=== PATIENT | male | born 1950 | race Caucasian/White ===

== ENCOUNTER 2016-06-19 05:53 | Emergency (ER) | payer OTHER ==
--- NOTE | 2016-06-19 07:19 | DIAGNOSTIC IMAGING REPORT ---
PROCEDURE: XR CHEST 2 VIEW INDICATION: COUGH TECHNIQUE: PA and lateral view. COMPARISON: None. FINDINGS: Hyperinflation. Lung are clear. Cardiovascular structures are normal. Bony thorax is unremarkable. IMPRESSION: 1. No acute changes 2. Hyperinflation
--- NOTE | 2016-06-19 07:35 | ED NURSING NOTES ---
Clinical Report - Nurses [facility] [place] [address] 06/19/2016 5:55 Patient: JUDIE CISNEROS TRIAGE Triage time 05:59 Jun 19 2016. Acuity: LEVEL 3. Chief Complaint: FEVER, POOR APPETITE and COUGH. 06:04 06/19/16. SEPSIS SCREEN: Sepsis Screen: negative. Negative (no infection suspected/documented). BERNADETTE COMA SCORE: Bernadette Coma Scale: 15- eyes open spontaneously (4); best verbal response- oriented x 4 (5); best motor response- obeys commands (6). --06:04 Jeanie Leal 05:59 06/19/16. BP: 154/89. HR: 61. RR: 20. O2 saturation: 95% on room air. Temp: 97.5 F (oral). Pain level now: 0/10. --06:04 Jeanie Leal. Weight: 86.1 kg stated. Height/Length: 73 inches Per Patient. BMI: 25. --06:02 Jeanie Leal. Medications None. --06:01 Jeanie Leal. Medication/allergy information source: the patient. --06:04 Jeanie Leal. Allergies No Known Drug Allergy. --06:01 Jeanie Leal. History Arrived by private vehicle. Historian: patient. Accompanied by family. Primary physician (Landry). Onset. (1 weeks). ( Patient states he has had a cough for one week that is productive with clear sputum. He states he has also had fever. He reports poor appetite and states he has not ate or drank for one week. He reports feeling fatigued.). PAST MEDICAL HX: Immunizations: up-to-date. SOCIAL HX: Smoker- current status unknown (Quit smoking ten days ago). Occasional alcohol use. No drug use. No infectious disease exposure. ABUSE ASSESSMENT: No report of abuse. FALL RISK ASSESSMENT: Fall risk assessment completed. No fall risk identified. NUTRITIONAL RISK ASSESSMENT: The nutritional risk assessment revealed no deficiencies. FUNCTIONAL ASSESSMENT: Functional assessment: no impairments noted. LEARNING NEEDS ASSESSMENT: The learning needs assessment revealed no barriers. SKIN INTEGRITY ASSESSMENT: Skin integrity risk assessment completed. No skin integrity risk identified. --06:04 Jeanie Leal. PROBLEMS: no known problems. ADDITIONAL SURGERIES: Tonsillectomy. --06:01 Jeanie Leal. Interventions ID band on patient. To treatment room. --06:04 Jeanie Leal. PHYSICAL ASSESSMENT Ambulatory to room. Patient gowned. GENERAL / NEURO / PSYCH: Alert. Oriented X 4. Appears in no acute distress. HEENT: No facial asymmetry noted. RESPIRATORY: Respirations not labored. CVS: Normal sinus rhythm noted. SKIN: Skin is warm and dry. --06:05 Jeanie Leal. NURSING PROGRESS NOTES Pulse oximeter and NIBP monitor placed on patient; monitor alarms on. Patient gowned. Warming measures: blanket applied. Reassurance given to the patient. Two patient identifiers checked. Call light placed in reach. Side rails up x 1. Bed placed in lowest position. Brakes of bed on. Patient ready for evaluation- chart flagged. --06:05 Elvis Jeanie 06:06 06/19/2016 Site #1 started via IV in the right antecubital space with an 20g angiocath, with aseptic technique and good blood return; one attempt. Blood drawn: rainbow set. Labeled in the presence of the patient and sent to the lab. Saline lock flushed with 10 mL saline. --06:06 ElvisCameronJeanie 06:16 06/19/2016 Started bag #1 1000 mL IV Fluids IV NS (Saline); bolus of 1000 mL over 1 hour(s) then at 1000 mL/hr via site #1. Allergies verified and confirmed 5 rights. IV patency established. IV site checked: no pain, redness, or swelling. IV flushed thoroughly pre- and post-medication administration. Completed per protocol. --06:16 Carlos Petty R.N. Patient ID band checked for patient name and birthdate: patient confirmed. Flu swab obtained by RN via nasal swab. Labeled in the presence of the patient and sent to lab. --06:16 Carlos Petty R.N. Patient transported to radiology by stretcher with tech. (06:40 Jun 19 2016). --06:51 Elvis Jeanie Patient returned from radiology by stretcher with tech. (06:48 Jun 19 2016). --06:51 Jeanie Leal 06:51 06/19/16. BP: 133/80. HR: 48. RR: 20. O2 saturation: 98% on room air. --06:52 Elvis Jeanie ( Provider notified of vitals, patient connected to monitoring manager.). --06:52 Jeanie Leal 06:58 06/19/2016 Prednisone PO Tablets 60 mg given. Allergies verified and confirmed 5 rights. --06:58 ElvisJeanie 07:02 06/19/2016 Zithromax PO Tablets 500 mg given. Allergies verified and confirmed 5 rights. --07:02 Elvis Jeanie Care transferred and report given (Piotr RODRIGUEZ). --07:04 Jeanie Leal 07:19 06/19/2016 Duoneb (Ipratropium-Albuterol) Neb TX 1 unit dose given. Given by the respiratory therapist. Allergies verified and confirmed 5 rights. --07:34 Angie Khan R.N. EKG time: (07:41 AM). EKG was performed by a tech and shown to the ED physician. --08:13 Cheri Rowell 07:16 06/19/2016 IV Fluids IV NS Discontinued: bag #1 infused. Total amount infused: 1000 mL. IV patency established. IV site checked: no pain, redness, or swelling. IV flushed thoroughly. --08:16 Angie Khan R.N. 08:17 06/19/2016 Site #1 removed upon discharge. Catheter intact. Manual pressure and bandage applied. --08:17 Angie Khan R.N. DISPOSITION / DISCHARGE Departure time: 08:15 Jun 19 2016. Condition at departure: improved and stable. No learning barriers present. Discharge instructions provided and reviewed with the patient. Reviewed medication(s) side effects, precautions, dosing and course information. Prescription(s) given to the patient. Patient verbalized understanding. Written instructions provided in [place]inean. The patient was discharged by the physician. He was discharged home and accompanied by treer. He left the Emergency Department ambulatory and via private vehicle. Info Analyst driving. --08:16 Angie Khan R.N. 08:15 06/19/16. BP: 118/65. HR: 60. RR: 16. O2 saturation: 95% on room air. Temp: 97.9 F (oral). Pain level now: 0/10. --08:16 Angie Khan R.N. Locked/Released at 06/19/2016 8:17 by Angie Khan R.N.
--- NOTE | 2016-06-19 07:35 | ED CLINICAL REPORT ---
Clinical Report - Physicians/Mid Levels [facility] [address] [place] [address] 06/19/2016 5:55 Patient: JUDIE CISNEROS Time Seen: 06:14. Arrived- By private vehicle. Historian- patient. HISTORY OF PRESENT ILLNESS Chief Complaint: FEVER and "NOT FEELING WELL". LACK OF APPETITE cough. Is still present. He has had measured fever of 102 F (2 days ago). The patient has had loss of appetite, muscle aches, fatigue, a cough and decreased oral intake. No chest pain, dyspnea, diarrhea or altered mental status. No skin breakdown noted or rash or joint pain. No decreased urine output. Additional history - The patient has recently been ill with respiratory problems. No known contact with a sick individual. He is not immunocompromised. No recent hospitalization. No new medication recently administered. No history of cancer. No indwelling line. No recent travel. No known exposure to an animal. No drug use. No alcohol recently. Pt states he has been drinking Mountain Dew all week. Similar symptoms previously: Occasionally. Recent medical care: Not recently seen/assessed. REVIEW OF SYSTEMS The patient has had anorexia and a sore throat. No weight loss, palpitations, calf pain, sputum production or constipation. No black stools, difficulty with urination, flank pain, headache or sinus pain. No easy bruising, enlarged lymph nodes, neck pain or back pain. The patient has had nausea (2 days ago - gone). He has had vomiting (2 days ago - gone). All systems otherwise negative, except as recorded above. PAST HISTORY Problems: no known problems. Additional Surgeries: Tonsillectomy. Medications: None. Allergies: No Known Drug Allergy. SOCIAL HISTORY Smoker- current status unknown. No alcohol use or drug use. ADDITIONAL NOTES The nursing notes have been reviewed. PHYSICAL EXAM Vital Signs: 06/19/2016 05:59 BP: 154/89. HR: 61. RR: 20. O2 saturation: 95%. Temp: 97.5 F. Pain level now: 0/10. Have been reviewed. Appearance: Alert. No acute distress. Eyes: Pupils equal, round and reactive to light. Eyes normal inspection. ENT: Nose normal. Neck: Normal inspection. Neck supple. CVS: Normal heart rate and rhythm. Heart sounds normal. Pulses normal. Respiratory: No respiratory distress. Breath sounds normal. Abdomen: Soft and nontender. Back: Normal inspection. Skin: Skin warm and dry. Normal skin color. No rash. Normal skin turgor. Extremities: Extremities exhibit normal ROM. Extremities nontender. Neuro: Oriented X 3. No motor deficit. No sensory deficit. LABS, X-RAYS, AND EKG EKG: EKG time: (0741). No acute ischemia. Rate: 56. Bradycardia. Left atrial enlargement. Normal MARIAA. Normal QRS complex. Normal axis. Normal ST and T waves, QT and QTc. Prior EKG unavailable. The study has been interpreted contemporaneously by me. The study has been independently viewed by me. The EKG appears to be a good tracing. I agree with and confirm the computer reading of the EKG. Rhythm Strip #1: Time: (0614). Rate= 57. Sinus bradycardia. Regular rhythm. Narrow QRS complexes. No ectopy. Conduction normal. Normal ST segments and T waves. The study was interpreted by me. Chest X-ray: No acute disease. Normal lung markings present. Normal heart size. Mediastinum normal. Great vessels normal. Soft tissues normal. No infiltrate. No fracture. No bony lesion present. Views: PA and lateral. Technique: good. The X-rays were independently viewed by me and interpreted contemporaneously by me. Prior films were not available for comparison. Laboratory Tests: CBC w Diff: (ERROL: 06/19/2016 06:05) ( MsgRcvd 06/19/2016 06:27) Final results Test Result Flag Units (Reference) WHITE BLOOD COUNT 12.5 H K/uL (4.5-11.5) RED BLOOD COUNT 5.55 M/uL (4.50-5.90) HEMOGLOBIN 15.6 gm/dL (13.5-17.5) HEMATOCRIT 49.4 % (41.0-53.0) MEAN CELL VOLUME 89 fL (80-100) MEAN CORPUSCULAR HGB 28 pg (26-34) MEAN CORPUSCULAR HGB CONC 32 g/dL (31-37) RED CELL DISTRIBUTION WIDTH 13.7 % (11.6-14.8) PLATELET COUNT 388 K/uL (150-400) LYMPH % 18.0 L % (25-40) MONO % 5.3 % (3-14) GRANULOCYTE % 76.7 CMP: (ERROL: 06/19/2016 06:05) ( MsgRcvd 06/19/2016 06:42) Final results Test Result Flag Units (Reference) GLUCOSE 128 H mg/dL (70-110) BUN 13 mg/dL (7-18) CREATININE 1.2 mg/dL (0.6-1.3) Estimated GFR >60 mL/min Estimated GFR- >60 mL/min Note: Persistent reduction over 3 months in eGFR<60 mL/min/1.73 m2 defines CKD. Patients with eGFR values>=60 mL/min/1.73 m2 may also have CKD if evidence ofpersistent proteinuria. Additional information may be foundat www.kidney.org. SODIUM 138 mmol/L (136-145) POTASSIUM 4.7 mmol/L (3.5-5.1) CHLORIDE 101 mmol/L (98-107) CARBON DIOXIDE 31 mmol/L (21-32) CALCIUM 9.4 mg/dL (8.5-10.1) TOTAL PROTEIN 7.8 g/dL (6.4-8.2) ALBUMIN 3.1 L g/dL (3.3-5.0) BILIRUBIN, TOTAL 0.7 mg/dL (0.0-1.0) ALKALINE PHOSPHATASE 88 U/L (46-116) AST (SGOT) 14 L U/L (15-37) ALT (SGPT) 20 U/L (12-78) Rapid Influenza Screen: (ERROL: 06/19/2016 06:10) ( MsgRcvd 06/19/2016 06:34) Final results SPECIMEN DESCRIPTION: FLU SWAB Test Result Flag Units (Reference) RAPID INFLUENZA SCREEN DATE: 06/19/16 INFLUENZA A: NEGATIVE SCREEN FOR INFLUENZA A INFLUENZA B: NEGATIVE SCREEN FOR INFLUENZA B . Pulse Oximetry: 06/19/2016 05:59 O2 saturation: 95%. (FIO2 - room air). Interpretation: normal. PROGRESS AND PROCEDURES Course of Care: Pt was given a liter of fluid, as well as a duoneb and prednisone, with improvement in sx. He was worked up for his sx, with a negative influenza test. CXR did not show pneumonia, by my interpretation. I did treat the pt with Zithromax for bronchitis. Patient and friend counseled in person regarding the patient's stable condition, test results, diagnosis and need for follow-up. Concerns were addressed. Old medical records reviewed. Disposition: Discharged. Condition: stable and improved. CLINICAL IMPRESSION Acute bacterial bronchitis. Acute bronchospasm INSTRUCTIONS Do not work for one week. Drink plenty of fluids. (Your influenza test is negative, and your chest x-ray does not show pneumonia at this time.). Warnings: GENERAL WARNINGS: Return or contact your physician immediately if your condition worsens or changes unexpectedly, if not improving as expected, or if other problems arise. Prescription Medications: Albuterol HFA oral inhaler: inhale 1-2 puffs every 4 hours as needed for wheezing, difficulty breathing or shortness of breath. Dispense one (1) unit. No refill. Prednisone 20 mg: take 3 orally every day for 4 days. Dispense sufficient quantity. No refills. Zithromax Z-Tyler: take 2 orally today, followed by 1 orally every day for the next 4 days. Total course 5 days. No refills. Substitution is permissible. Follow-up: Follow up with your doctor. Call for the next available appointment. Reason for referral: Follow up ER visit. Understanding of the discharge instructions verbalized by patient. (Electronically signed by Pamella Wood MD 06/19/2016 8:17)
--- NOTE | 2016-06-19 07:35 | ED ORDER SUMMARY ---
..... Patient: JUDIE CISNEROS OrderSheet [facility] VisitID: [id number] [place] [address] 65y, M Registration Date/Time: 06/19/2016 ORDER SHEET Weight: 86.1 kg (stated) Allergies: No Known Drug Allergy GENERAL ORDERS: Rapid Influenza Screen (Nasal Pharyngeal) (Flu swab) Urgent (06:14 06/19/2016 JDeElena R.N. verbal order read back to Calvin ROJAS) (Ack 6:15 AMcQuoid ER Tech1) (6:18 JDeElena R.N.) CBC w Diff Urgent (06:14 06/19/2016 JDeElena R.N. verbal order read back to Calvin ROJAS) (Ack 6:15 AMcQuoid ER Tech1) (6:18 JDeElena R.N.) CMP Urgent (06:14 06/19/2016 Jamari R.N. verbal order read back to Calvin ROJAS) (Ack 6:15 AMcQuoid ER Tech1) (6:18 JDeElena R.N.) Chest 2V Urgent (06:31 06/19/2016 Calvin ROJAS) (6:40 RFay) RT Evaluation Stat (06:52 06/19/2016 Calvin ROJAS) (Ack 6:55 AMcQuoid ER Tech1) (7:02 HSoule) Mattress Stuffer (Continuous) (07:33 06/19/2016 Calvin ROJAS) (7:34 MWinterer R.N.) EKG - ER Stat (07:33 06/19/2016 Calvin ROJAS) (Ack 7:34 MWinterer R.N.) (8:12 RKaruga) Pulse oximeter (07:33 06/19/2016 Calvin ROJAS) (7:34 MWinterer R.N.) MEDICATION ORDERS: DuoNeb Neb Tx 1 unit dose (NOW) (06:51 06/19/2016 Calvin ROJAS) (7:34 MWinterer R.N.) Prednisone PO 60 mg (NOW) (06:51 06/19/2016 Calvin ROJAS) (Ack 6:52 HSoule) (6:58 HSoule) Zithromax PO 500 mg (NOW) (06:54 06/19/2016 Calvin ROJAS) (Ack 6:58 HSoule) (7:02 HSoule) IV FLUIDS: IV NS with Folic Acid 1 mg/L: initial bolus 1000 mL (1000 mL/hr), then 1000 mL/hr for X1 (NOW) (06:14 06/19/2016 Jamari R.N. verbal order read back to Calvin ROJAS) (Cancelled: Other6:15 JDeElenlaz R.N.) IV Saline Lock (06:14 06/19/2016 Jamari R.N. verbal order read back to Calvin ROJAS) (6:15 JDeElena R.N.) IV NS with Normal Saline 1 Liter: initial bolus 1000 mL (1000 mL/hr), then 1000 mL/hr for X1 (NOW) (06:15 06/19/2016 Jamari R.N. verbal order read back to Calvin ROJAS) (6:16 JDeElena R.N.) ORDER SHEET NOTES: [Electronically signed by Pamella Wood MD (08:17 06/19/2016)] [Electronically signed by Angie Khan R.N. (08:06/19/2016)] [Electronically locked/signed by Angie Khan R.N. (08:06/19/2016)]
--- NOTE | 2016-06-19 07:35 | ED NURSING NOTES ---
Clinical Report - Nurses [facility] [address] 06/19/2016 5:55 Patient: JUDIE CISNEROS TRIAGE Triage time 05:59 Jun 19 2016. Acuity: LEVEL 3. Chief Complaint: FEVER, POOR APPETITE and COUGH. 06:04 06/19/16. SEPSIS SCREEN: Sepsis Screen: negative. Negative (no infection suspected/documented). BERNADETTE COMA SCORE: Bernadette Coma Scale: 15- eyes open spontaneously (4); best verbal response- oriented x 4 (5); best motor response- obeys commands (6). --06:04 Jeanie Leal 05:59 06/19/16. BP: 154/89. HR: 61. RR: 20. O2 saturation: 95% on room air. Temp: 97.5 F (oral). Pain level now: 0/10. --06:04 Jeanie Leal. Weight: 86.1 kg stated. Height/Length: 73 inches Per Patient. BMI: 25. --06:02 Jeanie Leal. Medications None. --06:01 Jeanie Leal. Medication/allergy information source: the patient. --06:04 Jeanie Leal. Allergies No Known Drug Allergy. --06:01 Jeanie Leal. History Arrived by private vehicle. Historian: patient. Accompanied by family. Primary physician (Landry). Onset. (1 weeks). ( Patient states he has had a cough for one week that is productive with clear sputum. He states he has also had fever. He reports poor appetite and states he has not ate or drank for one week. He reports feeling fatigued.). PAST MEDICAL HX: Immunizations: up-to-date. SOCIAL HX: Smoker- current status unknown (Quit smoking ten days ago). Occasional alcohol use. No drug use. No infectious disease exposure. ABUSE ASSESSMENT: No report of abuse. FALL RISK ASSESSMENT: Fall risk assessment completed. No fall risk identified. NUTRITIONAL RISK ASSESSMENT: The nutritional risk assessment revealed no deficiencies. FUNCTIONAL ASSESSMENT: Functional assessment: no impairments noted. LEARNING NEEDS ASSESSMENT: The learning needs assessment revealed no barriers. SKIN INTEGRITY ASSESSMENT: Skin integrity risk assessment completed. No skin integrity risk identified. --06:04 Jeanie Leal. PROBLEMS: no known problems. ADDITIONAL SURGERIES: Tonsillectomy. --06:01 Jeanie Leal. Interventions ID band on patient. To treatment room. --06:04 Jeanie Leal. PHYSICAL ASSESSMENT Ambulatory to room. Patient gowned. GENERAL / NEURO / PSYCH: Alert. Oriented X 4. Appears in no acute distress. HEENT: No facial asymmetry noted. RESPIRATORY: Respirations not labored. CVS: Normal sinus rhythm noted. SKIN: Skin is warm and dry. --06:05 Jeanie Leal. NURSING PROGRESS NOTES Pulse oximeter and NIBP monitor placed on patient; monitor alarms on. Patient gowned. Warming measures: blanket applied. Reassurance given to the patient. Two patient identifiers checked. Call light placed in reach. Side rails up x 1. Bed placed in lowest position. Brakes of bed on. Patient ready for evaluation- chart flagged. --06:05 Elvis Jeanie 06:06 06/19/2016 Site #1 started via IV in the right antecubital space with an 20g angiocath, with aseptic technique and good blood return; one attempt. Blood drawn: rainbow set. Labeled in the presence of the patient and sent to the lab. Saline lock flushed with 10 mL saline. --06:06 ElvisCameronJeanie 06:16 06/19/2016 Started bag #1 1000 mL IV Fluids IV NS (Saline); bolus of 1000 mL over 1 hour(s) then at 1000 mL/hr via site #1. Allergies verified and confirmed 5 rights. IV patency established. IV site checked: no pain, redness, or swelling. IV flushed thoroughly pre- and post-medication administration. Completed per protocol. --06:16 Carlos Petty R.N. Patient ID band checked for patient name and birthdate: patient confirmed. Flu swab obtained by RN via nasal swab. Labeled in the presence of the patient and sent to lab. --06:16 Carlos Petty R.N. Patient transported to radiology by stretcher with tech. (06:40 Jun 19 2016). --06:51 Elvis Jeanie Patient returned from radiology by stretcher with tech. (06:48 Jun 19 2016). --06:51 Jeanie Leal 06:51 06/19/16. BP: 133/80. HR: 48. RR: 20. O2 saturation: 98% on room air. --06:52 Elvis Jeanie ( Provider notified of vitals, patient connected to quality assurance monitor.). --06:52 Jeanie Leal 06:58 06/19/2016 Prednisone PO Tablets 60 mg given. Allergies verified and confirmed 5 rights. --06:58 ElvisJeanie 07:02 06/19/2016 Zithromax PO Tablets 500 mg given. Allergies verified and confirmed 5 rights. --07:02 Elvis Jeanie Care transferred and report given (Piotr RODRIGUEZ). --07:04 Jeanie Leal 07:19 06/19/2016 Duoneb (Ipratropium-Albuterol) Neb TX 1 unit dose given. Given by the respiratory therapist. Allergies verified and confirmed 5 rights. --07:34 Angie Khan R.N. EKG time: (07:41 AM). EKG was performed by a tech and shown to the ED physician. --08:13 Cheri Rowell 07:16 06/19/2016 IV Fluids IV NS Discontinued: bag #1 infused. Total amount infused: 1000 mL. IV patency established. IV site checked: no pain, redness, or swelling. IV flushed thoroughly. --08:16 Angie Khan R.N. 08:17 06/19/2016 Site #1 removed upon discharge. Catheter intact. Manual pressure and bandage applied. --08:17 Angie Khan R.N. DISPOSITION / DISCHARGE Departure time: 08:15 Jun 19 2016. Condition at departure: improved and stable. No learning barriers present. Discharge instructions provided and reviewed with the patient. Reviewed medication(s) side effects, precautions, dosing and course information. Prescription(s) given to the patient. Patient verbalized understanding. Written instructions provided in [place]. The patient was discharged by the physician. He was discharged home and accompanied by jigger crown pouncing machine operator. He left the Emergency Department ambulatory and via private vehicle. Mid Level Developer driving. --08:16 Angie Khan R.N. 08:15 06/19/16. BP: 118/65. HR: 60. RR: 16. O2 saturation: 95% on room air. Temp: 97.9 F (oral). Pain level now: 0/10. --08:16 Angie Khan R.N. Locked/Released at 06/19/2016 8:17 by Angie Khan R.N.
--- NOTE | 2016-06-19 07:35 | ED ORDER SUMMARY ---
..... Patient: JUDIE CISNEROS OrderSheet [facility] VisitID: [id number] [place] [address] 65y, M Registration Date/Time: 06/19/2016 ORDER SHEET Weight: 86.1 kg (stated) Allergies: No Known Drug Allergy GENERAL ORDERS: Rapid Influenza Screen (Nasal Pharyngeal) (Flu swab) Urgent (06:14 06/19/2016 JDeElena R.N. verbal order read back to Calvin ROJAS) (Ack 6:15 AMcQuoid ER Tech1) (6:18 JDeElena R.N.) CBC w Diff Urgent (06:14 06/19/2016 JDeElena R.N. verbal order read back to Calvin ROJAS) (Ack 6:15 AMcQuoid ER Tech1) (6:18 JDeElena R.N.) CMP Urgent (06:14 06/19/2016 Jamari R.N. verbal order read back to Calvin ROJAS) (Ack 6:15 AMcQuoid ER Tech1) (6:18 JDeElena R.N.) Chest 2V Urgent (06:31 06/19/2016 Calvin ROJAS) (6:40 RFay) RT Evaluation Stat (06:52 06/19/2016 Calvin ROJAS) (Ack 6:55 AMcQuoid ER Tech1) (7:02 HSoule) Rn Iv Therapy (Continuous) (07:33 06/19/2016 Calvin ROJAS) (7:34 MWinterer R.N.) EKG - ER Stat (07:33 06/19/2016 Calvin ROJAS) (Ack 7:34 MWinterer R.N.) (8:12 RKaruga) Pulse oximeter (07:33 06/19/2016 Calvin ROJAS) (7:34 MWinterer R.N.) MEDICATION ORDERS: DuoNeb Neb Tx 1 unit dose (NOW) (06:51 06/19/2016 Calvin ROJAS) (7:34 MWinterer R.N.) Prednisone PO 60 mg (NOW) (06:51 06/19/2016 Calvin ROJAS) (Ack 6:52 HSoule) (6:58 HSoule) Zithromax PO 500 mg (NOW) (06:54 06/19/2016 Calvin ROJAS) (Ack 6:58 HSoule) (7:02 HSoule) IV FLUIDS: IV NS with Folic Acid 1 mg/L: initial bolus 1000 mL (1000 mL/hr), then 1000 mL/hr for X1 (NOW) (06:14 06/19/2016 Jamari R.N. verbal order read back to Calvin ROJAS) (Cancelled: Other6:15 JDeElenlaz R.N.) IV Saline Lock (06:14 06/19/2016 Jamari R.N. verbal order read back to Calvin ROJAS) (6:15 JDeElena R.N.) IV NS with Normal Saline 1 Liter: initial bolus 1000 mL (1000 mL/hr), then 1000 mL/hr for X1 (NOW) (06:15 06/19/2016 Jamari R.N. verbal order read back to Calvin ROJAS) (6:16 JDeElena R.N.) ORDER SHEET NOTES: [Electronically signed by Pamella Wood MD (08:17 06/19/2016)] [Electronically signed by Angie Khan R.N. (08:06/19/2016)] [Electronically locked/signed by Angie Khan R.N. (08:06/19/2016)]
--- NOTE | 2016-06-19 08:18 | ED MAR SUMMARY ---
..... Medication Administration Record [facility] [address] [place] [address] Patient: JUDIE CISNEROS Visit ID: [id number] 65y, M Weight: 86.1 kg Height/Length: 73 in BMI: 25 ALLERGIES: No Known Drug Allergy Start 06:16 06/19/2016 Carlos Petty R.N., Stop 07:16 06/19/2016 Angie Khan R.N. Medication Administered: IV NS (SALINE), Dose: IV Fluids, Rate: 1000 mL/hr, Bolus: 1000 mL over 1 hour(s), Dispensed: 1000 mL bag, Site: #1 right AC. Medication Ordered: IV NS with Normal Saline 1 Liter: initial bolus 1000 mL (1000 mL/hr), then 1000 mL/hr for X1 (NOW). Given 06:58 06/19/2016 Jeanie Leal, Medication Administered: PREDNISONE [PO], Dose: 60 mg Tablets PO. Medication Ordered: Prednisone PO 60 mg (NOW). Given 07:02 06/19/2016 Jeanie Leal, Medication Administered: ZITHROMAX [PO], Dose: 500 mg Tablets PO. Medication Ordered: Zithromax PO 500 mg (NOW). Given 07:19 06/19/2016 Angie Khan R.N. Medication Administered: DUONEB [NEB TX] (IPRATROPIUM-ALBUTEROL), Dose: 1 unit dose Neb TX. Medication Ordered: DuoNeb Neb Tx 1 unit dose (NOW).
--- NOTE | 2016-06-19 08:18 | ED MED RECONCILIATION SUMMARY ---
Patient: JUDIE CISNEROS Medication Reconciliation Report [facility] VisitID: [id number] [place] [address] 65y, M Registration Date/Time: 06/19/2016 Weight: 86.1 kg Height/Length: 73 in. BMI: 25.0 ALLERGIES: No Known Drug Allergy The patient's Home Medications are listed below: NONE. The source(s) of the original Home Medication information: patient The following Medications were given to the patient in the Emergency Department: IV NS IV Fluids bolus 1000 mL over 1 hour(s), then 1000 mL/hr, administered: 06/19/2016 6:16:00 AM Prednisone [PO] PO 60 mg, administered: 06/19/2016 6:58:00 AM Zithromax [PO] PO 500 mg, administered: 06/19/2016 7:02:00 AM Duoneb [Neb Tx] Neb TX 1 unit dose, administered: 06/19/2016 7:19:00 AM The following Medications were prescribed to the patient: Albuterol HFA oral inhaler: inhale 1-2 puffs every 4 hours as needed for wheezing, difficulty breathing or shortness of breath. Dispense one (1) unit. No refill. -- Pamella Wood MD Prednisone 20 mg: take 3 orally every day for 4 days. Dispense sufficient quantity. No refills. -- Pamella Wood MD Zithromax Z-Tyler: take 2 orally today, followed by 1 orally every day for the next 4 days. Total course 5 days. No refills. Substitution is permissible. -- Pamella Wood MD
--- NOTE | 2016-06-19 08:18 | ED MED RECONCILIATION SUMMARY ---
Patient: JUDIE CISNEROS Medication Reconciliation Report [facility] VisitID: [id number] [place] [address] 65y, M Registration Date/Time: 06/19/2016 Weight: 86.1 kg Height/Length: 73 in. BMI: 25.0 ALLERGIES: No Known Drug Allergy The patient's Home Medications are listed below: NONE. The source(s) of the original Home Medication information: patient The following Medications were given to the patient in the Emergency Department: IV NS IV Fluids bolus 1000 mL over 1 hour(s), then 1000 mL/hr, administered: 06/19/2016 6:16:00 AM Prednisone [PO] PO 60 mg, administered: 06/19/2016 6:58:00 AM Zithromax [PO] PO 500 mg, administered: 06/19/2016 7:02:00 AM Duoneb [Neb Tx] Neb TX 1 unit dose, administered: 06/19/2016 7:19:00 AM The following Medications were prescribed to the patient: Albuterol HFA oral inhaler: inhale 1-2 puffs every 4 hours as needed for wheezing, difficulty breathing or shortness of breath. Dispense one (1) unit. No refill. -- Pamella Wood MD Prednisone 20 mg: take 3 orally every day for 4 days. Dispense sufficient quantity. No refills. -- Pamella Wood MD Zithromax Z-Tyler: take 2 orally today, followed by 1 orally every day for the next 4 days. Total course 5 days. No refills. Substitution is permissible. -- Pamella Wood MD
--- NOTE | 2016-06-19 08:18 | ED DISCHARGE INSTRUCTIONS ---
Patient: JUDIE CISNEROS General Instructions [facility] VisitID: [id number] [place] [address] 65y, M Registration Date/Time: 06/19/2016 Acute bacterial bronchitis. Acute bronchospasm INSTRUCTIONS Do not work for one week. Drink plenty of fluids. (Your influenza test is negative, and your chest x-ray does not show pneumonia at this time.). Warnings: GENERAL WARNINGS: Return or contact your physician immediately if your condition worsens or changes unexpectedly, if not improving as expected, or if other problems arise. Prescription Medications: Albuterol HFA oral inhaler: inhale 1-2 puffs every 4 hours as needed for wheezing, difficulty breathing or shortness of breath. Dispense one (1) unit. No refill. Prednisone 20 mg: take 3 orally every day for 4 days. Dispense sufficient quantity. No refills. Zithromax Z-Tyler: take 2 orally today, followed by 1 orally every day for the next 4 days. Total course 5 days. No refills. Substitution is permissible. Follow-up: Follow up with your doctor. Call for the next available appointment. Reason for referral: Follow up ER visit. Understanding of the discharge instructions verbalized by patient. ADDITIONAL INFORMATION Bronchitis (Adult: Abx Tx) BRONCHITIS is an infection of the air passages (bronchial tubes). It often occurs during the common cold. Symptoms include cough with mucus (phlegm) and low-grade fever. Bronchitis usually lasts 7-14 days. Mild cases can be treated with simple home remedies. More severe infection is treated with an antibiotic. Home Care: If symptoms are severe, rest at home for the first 2-3 days. When you resume activity, don't let yourself get too tired. Do not smoke. Avoid being exposed to the smoke of others. You may use acetaminophen (Tylenol) or ibuprofen (Motrin, Advil) to control fever or pain, unless another medicine was prescribed for this. [NOTE: If you have chronic liver or kidney disease or ever had a stomach ulcer or GI bleeding, talk with your doctor before using these medicines.] Your appetite may be poor, so a light diet is fine. Avoid dehydration by drinking 6-8 glasses of fluids per day (water, soft, drinks, juices, tea, soup, etc.). Extra fluids will help loosen secretions in the lungs. Lqge-ydy-fvxmbgo cough medicines that containdextromethorphan(such as Robitussin DM) and decongestants (Actifed or Sudafed) may help relieve cough and congestion. [NOTE: Do not use decongestants if you have high blood pressure.] Finish all antibiotic medicine, even if you are feeling better after only a few days. Follow Up with your doctor or as directed if you dont start to feel better after three days. [NOTE: If you are age 65 or older, or if you have chronic asthma or COPD, we recommend a PNEUMOCOCCAL VACCINATION every five years and a yearly INFLUENZAVACCINATION (FLU-SHOT) every . Ask your doctor about this. If you had an X-ray, a radiologist will review it. You will be notified of any new findings that may affect your care.] Get Prompt Medical Attention if any of the following occur: Fever over 100.4F (38.0C) for more than three days Trouble breathing, wheezing or pain with breathing Coughing up blood or increased amounts of colored sputum Weakness, drowsiness, headache, facial pain, ear pain or a stiff neck Bronchospasm (Adult) Bronchospasm occurs when the airways (bronchial tubes) go into spasm and contract. This makes it hard to breathe and causes wheezing (a high-pitched whistling sound). Bronchospasm can also cause frequent coughing without the wheezing sound. Bronchospasm is due to irritation, inflammation or allergic reaction of the airways. People with asthma get bronchospasm. However, not everyone with bronchospasm has asthma. Being exposed to harmful fumes, a recent case of bronchitis, or a flare-up of chronic emphysema (COPD) may cause the airways to spasm. An episode of bronchospasm may last 7-14 days. Medicine may be prescribed to relax the airways and prevent wheezing. Antibiotics will be prescribed only if your doctor thinks there is a bacterial infection. Antibiotics do not help a viral infection. Home Care: Drink lots of water or other fluids (at least 10 glasses a day) during an attack. This will loosen lung secretions and make it easier to breathe. If you have heart or kidney disease, check with your doctor before you drink extra amounts of fluids. Take prescribed medicine exactly at the times advised. If you have a hand-held inhaler or aerosol breathing medicine, do not use it more than once every four hours, unless told to do so. If prescribed an antibiotic or prednisone, take all of the medicine even if you are feeling better after a few days. Do not smoke. Avoid being exposed to the smoke of others. If you were given an inhaler, use it exactly as directed. If you need to use it more often than prescribed, your condition may be getting worse. Contact your doctor or this facility. Follow Up With Your Doctor, Or As Directed. [ NOTE: If you are age 65 or older, or if you have chronic asthma or COPD, we recommend a PNEUMOCOCCAL VACCINATION every five years and a yearly INFLUENZA VACCINATION (FLU-SHOT) every . Ask your doctor about this.] Get Prompt Medical Attention If Any Of The Following Occur: Increased wheezing or shortness of breath Need to use your inhalers more often than usual without relief Fever of 100.4F (38C) or higher, or as directed by your healthcare provider Coughing up lots of dark-colored or bloody sputum (mucus) Chest pain with each breath You do not start to improve within 24 hours You have been given the following additional information: Bronchitis, Antiobiotic Treatment (Adult) Bronchospasm (Adult) Do not work for one week. (Electronically signed by Pamella Wood MD 06/19/2016 8:17)
--- NOTE | 2016-06-19 08:18 | ED MAR SUMMARY ---
..... Medication Administration Record [facility] [address] [place] [address] Patient: JUDIE CISNEROS Visit ID: [id number] 65y, M Weight: 86.1 kg Height/Length: 73 in BMI: 25 ALLERGIES: No Known Drug Allergy Start 06:16 06/19/2016 Carlos Petty R.N., Stop 07:16 06/19/2016 Angie Khan R.N. Medication Administered: IV NS (SALINE), Dose: IV Fluids, Rate: 1000 mL/hr, Bolus: 1000 mL over 1 hour(s), Dispensed: 1000 mL bag, Site: #1 right AC. Medication Ordered: IV NS with Normal Saline 1 Liter: initial bolus 1000 mL (1000 mL/hr), then 1000 mL/hr for X1 (NOW). Given 06:58 06/19/2016 Jeanie Leal, Medication Administered: PREDNISONE [PO], Dose: 60 mg Tablets PO. Medication Ordered: Prednisone PO 60 mg (NOW). Given 07:02 06/19/2016 Jeanie Leal, Medication Administered: ZITHROMAX [PO], Dose: 500 mg Tablets PO. Medication Ordered: Zithromax PO 500 mg (NOW). Given 07:19 06/19/2016 Angie Khan R.N. Medication Administered: DUONEB [NEB TX] (IPRATROPIUM-ALBUTEROL), Dose: 1 unit dose Neb TX. Medication Ordered: DuoNeb Neb Tx 1 unit dose (NOW).
== END 2016-06-19 08:10 | disposition home or self-care (01) ==
LOC: ED SRH 05:53
DX: J20.8 Acute bronchitis due to other specified organisms (principal); B96.89 Other specified bacterial agents as the cause of diseases classified elsewhere; F17.200 Nicotine dependence, unspecified, uncomplicated
CPT/HCPCS: 90100; 91400; 95059